=== PATIENT | female | born 1985 | race Caucasian/White ===

== ENCOUNTER 2022-12-30 18:22 | Emergency (ER) | payer MEDICAID, SELFPAY ==
[2022-12-30 18:23] VITALS: BP 163/72; PULSE 82; RESP 18; TEMP 36.4; O2SAT 98; BMI 30.2
[2022-12-30 18:35] VITALS: BP 163/72; PULSE 91; O2SAT 98
[2022-12-30 19:00] VITALS: BP 127/91; PULSE 76; O2SAT 96
--- NOTE | 2022-12-30 19:00 | PC.NURSE ---
Dr. Sparrow at BS for pt eval
[2022-12-30 19:07] LABS: Basophils # 0.1 K/mm3 (0-0.2); Basophils % 0.5 % (0.1-2.0); Eosinophils # 0.2 K/mm3 (0.0-0.4); Eosinophils % 1.8 % (0.1-12.0); Hematocrit 46.5 % (37.0-47.0); Hemoglobin 15.4 g/dL (12.2-16.2); Lymphocytes # 2.5 K/mm3 (0.7-4.5); Lymphocytes % 23.4 % (10-50); Mean Corpuscular HGB Conc 33.2 g/dL (31.8-35.4); Mean Corpuscular Hemoglobin 28.8 pg (27.0-31.2); Mean Corpuscular Volume 86.9 fl (81-99); Mean Platelet Volume 9.3 fl (7.4-10.4); Monocytes # 0.6 K/mm3 (0.1-1.0); Monocytes % 5.9 % (1.7-9.3); Neutrophils # 7.1 K/mm3 (1.8-7.8); Neutrophils % 68.4 % (37.0-80.0); Platelet Count 390 K/mm3 (142-424); Red Blood Count 5.35 M/mm3 (4.20-5.40); Red Cell Distribution Width 13.2 % (11.5-17.5); White Blood Count 10.5 K/mm3 (4.8-10.8)
--- NOTE | 2022-12-30 19:07 | CT_ITS ---
PROCEDURE INFORMATION: Exam: CT Abdomen And Pelvis With Contrast Exam date and time: 12/30/2022 7:51 PM Age: 37 years old Clinical indication: Abdominal pain; Generalized; Additional info: Diffuse abd pain x2 months, post prandial, wt loss TECHNIQUE: Imaging protocol: Computed tomography of the abdomen and pelvis with contrast. Radiation optimization: All CT scans at this facility use at least one of these dose optimization techniques: automated exposure control; mA and/or kV adjustment per patient size (includes targeted exams where dose is matched to clinical indication); or iterative reconstruction. Contrast material: ISOVUE; Contrast volume: 75 ml; Contrast route: IV; REPORTING DATA: Count of CT and Cardiac NM exams in prior 12 months: This patient has received 0 known CTs and 0 known cardiac nuclear medicine studies in the 12 months prior to the current study. COMPARISON: No relevant prior studies available. FINDINGS: Liver: Normal. No mass. Gallbladder and bile ducts: Gallbladder is surgically absent. Pancreas: Normal. No ductal dilation. Spleen: Normal. No splenomegaly. Adrenal glands: Normal. No mass. Kidneys and ureters: Normal. No hydronephrosis. Stomach and bowel: Unremarkable. No obstruction. No mucosal thickening. Appendix: No evidence of appendicitis. Intraperitoneal space: Unremarkable. No free air. No significant fluid collection. Vasculature: Unremarkable. No abdominal aortic aneurysm. Lymph nodes: Unremarkable. No enlarged lymph nodes. Urinary bladder: Unremarkable as visualized. Reproductive: Unremarkable as visualized. Bones/joints: Unremarkable. No acute fracture. Soft tissues: Unremarkable. IMPRESSION: Negative CT abdomen and pelvis
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
[2022-12-30 19:09] LABS: Chloride 105 mmol/L (98-107); Potassium 3.4 mmoL/L (3.5-5.1); Sodium 139 mmol/L (136-145)
[2022-12-30 19:11] LABS: Blood Urea Nitrogen 9 mg/dl (7-17); Creatinine Clearance Estimated 116 mL/min (50-200); Estimated Glomerular Filt Rate 80 ml/min (>60); GFR (African American) 97 ML/MIN (>60)
[2022-12-30 19:12] LABS: Alanine Aminotransferase 40 U/L (12-78); Albumin Level 4.7 g/dl (3.5-5.0); Albumin/Globulin Ratio 1.2 (1.1-1.8); Alkaline Phosphatase 113 U/L (38-126); Anion Gap 14.4 mEq/L (5-15); Aspartate Amino Transferase 47 U/L (14-36); Bilirubin,Total 1.5 mg/dl (0.2-1.3); Calcium 9.5 mg/dl (8.4-10.2); Carbon Dioxide 23 mmol/L (22.0-30.0); Globulin 3.8 g/dL (1.3-3.2); Glucose 107 mg/dl (74-100); Total Protein,Serum 8.5 g/dl (6.3-8.2)
[2022-12-30 19:19] LABS: HCG Qualitative, Serum Negative (Negative)
[2022-12-30 19:21] LABS: Lactic Acid 1.2 mmol/L (0.7-2.1)
--- NOTE | 2022-12-30 19:48 | PC.NURSE ---
Called to CT for new PIVL insertion.
[2022-12-30 21:13] VITALS: BP 105/61; PULSE 100; RESP 20; TEMP 37.1; O2SAT 97
== END 2022-12-30 21:13 | disposition home or self-care (01) ==
PROVIDERS: Emergency Provider Student in an Organized Health Care Education/Training Program
DX: R10.84 Generalized abdominal pain (principal); R11.2 Nausea with vomiting, unspecified; R19.7 Diarrhea, unspecified; R63.4 Abnormal weight loss; F17.290 Nicotine dependence, other tobacco product, uncomplicated; E78.5 Hyperlipidemia, unspecified; E11.9 Type 2 diabetes mellitus without complications
CPT/HCPCS: 74177; 80053; 83605; 84703; 85025; 96361; 96374; 96375; 99284; J0131; J2405; Q9967

== ENCOUNTER 2022-12-31 09:24 | Observation (INO) | payer MEDICAID, SELFPAY ==
[2022-12-31] VITALS (25 sets, daily range): BP systolic 89–130; BP diastolic 46–82; PULSE 59–112; RESP 15–21; TEMP 36.7–36.9; O2SAT 92–100; BMI 29.0; BMI 32.8
--- NOTE | 2022-12-31 09:28 | PC.NURSE ---
Dr. Burleson at BS for pt eval
--- NOTE | 2022-12-31 09:31 | XR_ITS ---
FINAL REPORT CLINICAL HISTORY: epigastric pain, low chest pain COMPARISON: None FINDINGS: A single portable view of the chest was obtained. The heart size and pulmonary vascularity are within normal limits. The mediastinum is within normal limits. No acute pulmonary abnormality is identified. The bony thorax is intact. IMPRESSION: No active cardiopulmonary disease. Reviewed, Interpreted and Dictated by Juancarlos Hughes III, MD Transcribed by Liberty Malin Authenticated and [facility]
--- NOTE | 2022-12-31 09:33 | HMH.EDGENADL ---
Discharge Plan Disposition Patient Disposition: Admitted Chief Complaint: Abdominal Pain Clinical Impressions Clinical Impression: Complaint of melena, Epigastric abdominal pain Discharge ED Provider: Kristofer Burleson General Adult HPI General Chief complaint: Abdominal Pain Stated complaint: ABD pain, dry heaves, seizure this AM Time Seen by Provider: 12/31/22 09:33 Mode of Arrival: Ambulatory Source of Information: Patient Limitations: No Limitations Description of Symptoms (Recalled from ER Triage Doc. by RN): pt to ed c/o epigastric pain, diarrhea, cold sweats x3 days. pt states she was seen in the ed yesterday for same complaints and was told she needed to follow up for a scope. History of Present Illness HPI narrative: Patient is a 37-year-old female with past medical history of previously taking Ozempic, discontinued in August who presents emergency department for evaluation of multiple complaints. Over the last 48 hours patient has had 1 episode of bloody vomiting, otherwise foamy vomiting. Black stools numerous times a day. No dysuria. There is associated epigastric abdominal pain that is moderate to severe in intensity. No other acute complaints at this time. Per chart review yesterday patient was evaluated with hematologic labs are nonactionable, CT imaging was negative and patient had resolution of pain and was referred for outpatient scope which she has yet to schedule. Due to persistent symptoms she presents here for continued evaluation. Related Data Home Medications Medication Instructions Recorded Confirmed atorvastatin 40 mg tablet 40 mg PO DAILY Cholesterol 12/30/22 12/31/22 cholecalciferol (vitamin D3) 125 125 mcg PO DAILY supplement 12/30/22 12/31/22 mcg (5,000 unit) tablet (Vitamin D3) famotidine 40 mg tablet 40 mg PO DAILY Acid Reflux 12/31/22 12/31/22 Allergies Allergy/AdvReac Type Severity Reaction Status Date / Time No Known Allergies Allergy Verified 12/30/22 18:46 [facility] Disclaimer: The information contained in this section may have been updated after the patient was seen, as this information can be updated by other users. Medical History (Updated 12/31/22 @ 13:47 by Kristofer Burleson MD) Diabetes High cholesterol Surgical History (Updated 12/30/22 @ 18:51 by Nicole Soliz RN) History of bladder surgery Hx of cholecystectomy S/P hernia repair Social History (Updated 12/30/22 @ 21:10 by Ozzy Sparrow MD) Smoking Status: Never smoker alcohol intake: never current occupational status: other Travel in the last 8 weeks: None ROS Obtained: Yes Systems reviewed as appropriate & no additional complaints except as documented Physical Exam General General appearance: alert and in distress Head Head exam: atraumatic and normocephalic Eye Eye exam: Present PERRL and EOMI ENT ENT exam: Present mucous membranes moist Neck Neck exam: Present normal inspection Chest Chest inspection: Present normal inspection and symmetric chest wall rise Respiratory Respiratory exam: Present normal lung sounds bilaterally and other (Hyperventilating) Cardiovascular Cardiovascular exam: Present normal rhythm and tachycardia Abdominal Exam Abdominal exam: Present soft and tenderness (Epigastric) Extremities Exam Extremities exam: Present normal inspection Neurological Exam Neurological exam: Present alert Psychiatric Psychiatric exam: Present normal affect Skin Skin exam: Present warm and dry Medical Decision Making Feliciano Inquiry Pt receiving controlled substance: No Vital Signs: 12/31/22 09:28 12/31/22 10:11 12/31/22 10:31 Temperature 98.3 F Temperature Source Oral Pulse Rate 85 85 Pulse Rate [Left Radial] 112 H Respiratory Rate 21 Blood Pressure 104/77 L 106/49 L Blood Pressure [Right Arm] 122/77 Blood Pressure Mean [Right Arm] 92 02 Sat by Pulse Oximetry 98 100 100 Oxygen Delivery Method Room Air Room Air 12/31/22
--- NOTE | 2022-12-31 09:37 | ECG_ITS ---
APPROVED REPORT Exam: Resting ECG HR:66 bpm ECG Measurements Heart Rate 66 AXES NE 136 P 67 QRSd 85 QRS 30 QT 386 T 44 QTc 399 Conclusion SINUS RHYTHM WITH MARKED SINUS ARRHYTHMIA BORDERLINE ECG UNCONFIRMED REPORT Electronically signed by : Scott Ponce MD 12/31/2022 19:37:41
[2022-12-31 09:48] LABS: Coronavirus 19, PCR Not Detected (NotDetected); Influenza A, PCR Not Detected (NotDetected); Influenza B, PCR Not Detected (NotDetected)
--- NOTE | 2022-12-31 09:48 | PC.NURSE ---
XR AT BEDSIDE
--- NOTE | 2022-12-31 09:50 | PC.NURSE ---
Pt ambulatory to bathroom with staff assist. Urine obtained.
--- NOTE | 2022-12-31 09:51 | PC.NURSE ---
RAD at BS for xray
--- NOTE | 2022-12-31 10:05 | PC.NURSE ---
Dr. Burleson at speaking with pt/family about POC
[2022-12-31 10:32] LABS: Basophils % 0.3 % (0.1-2.0); Eosinophils # 0.1 K/mm3 (0.0-0.4); Eosinophils % 1.1 % (0.1-12.0); Hematocrit 40.1 % (37.0-47.0); Lymphocytes # 1.1 K/mm3 (0.7-4.5); Mean Corpuscular HGB Conc 33.2 g/dL (31.8-35.4); Mean Corpuscular Hemoglobin 28.8 pg (27.0-31.2); Mean Corpuscular Volume 86.7 fl (81-99); Mean Platelet Volume 8.6 fl (7.4-10.4); Monocytes # 0.4 K/mm3 (0.1-1.0); Neutrophils # 8.5 K/mm3 (1.8-7.8); Neutrophils % 83.5 % (37.0-80.0); Platelet Count 343 K/mm3 (142-424); Red Blood Count 4.62 M/mm3 (4.20-5.40); Red Cell Distribution Width 13.1 % (11.5-17.5); White Blood Count 10.1 K/mm3 (4.8-10.8)
[2022-12-31 10:40] LABS: Chloride 107 mmol/L (98-107)
[2022-12-31 10:41] LABS: Potassium 3.1 mmoL/L (3.5-5.1); Sodium 139 mmol/L (136-145)
[2022-12-31 10:43] LABS: Alanine Aminotransferase 42 U/L (12-78); Albumin Level 3.8 g/dl (3.5-5.0); Albumin/Globulin Ratio 1.3 (1.1-1.8); Alkaline Phosphatase 91 U/L (38-126); Anion Gap 15.1 mEq/L (5-15); Aspartate Amino Transferase 42 U/L (14-36); Bilirubin,Total 1.3 mg/dl (0.2-1.3); Blood Urea Nitrogen 9 mg/dl (7-17); Carbon Dioxide 20 mmol/L (22.0-30.0); Creatinine Clearance Estimated 122 mL/min (50-200); Estimated Glomerular Filt Rate 80 ml/min (>60); GFR (African American) 97 ML/MIN (>60); Globulin 2.9 g/dL (1.3-3.2); Hemoglobin 13.3 g/dL (12.2-16.2); Lipase 71 U/L (23-300); Total Protein,Serum 6.7 g/dl (6.3-8.2)
[2022-12-31 10:44] LABS: Calcium 8.8 mg/dl (8.4-10.2); Glucose 123 mg/dl (74-100)
[2022-12-31 10:57] LABS: HCG Qualitative, Serum Negative (Negative)
[2022-12-31 11:22] LABS: Troponin I < 0.01 ng/ml (0.00-0.034)
[2022-12-31 11:32] LABS: Microscopic, Urine URINE MICROSCOPIC (MICROSCOPIC)
--- NOTE | 2022-12-31 11:38 | PC.NURSE ---
Rounded on pt. She advised her pain had been completely gone but is starting to return at this time. Dr. Burleson made aware.
[2022-12-31 11:51] LABS: Appearance,Urine CLEAR (Clear); Blood, Urine 2+ (Negative); Color,Urine DARK YELLOW (Yellow); Glucose,Urine (UA) Negative (Negative); Ketones,Urine 1+ (Negative); Leukocyte Esterase,Urine TRACE (Negative); Nitrate,Urine Negative (Negative); Protein,Urine 1+ (Negative); Specific Gravity, Urine >= 1.030 (1.005-1.030); Urobilinogen,Urine 0.2 EU/dl (0.2)
[2022-12-31 12:26] LABS: Bacteria,Urine 2+ /lpf; Bilirubin,Urine Negative (Negative)
--- NOTE | 2022-12-31 12:49 | PC.NURSE ---
Rounded on pt. Advised she had no nausea, but did have pain.
--- NOTE | 2022-12-31 13:05 | PC.NURSE ---
asked Dr. Stanton to return call to Dr. Burleson for consult and possible admission/EGD
--- NOTE | 2022-12-31 13:07 | PC.NURSE ---
Dr. Burleson s/w Dr. Dodge for possible admission, hospitalist would like for Dr. Stanton to be consulted first.
--- NOTE | 2022-12-31 13:08 | PC.NURSE ---
Dr. Burleson s/w Dr. Stanton, agree to admit
--- NOTE | 2022-12-31 13:11 | PC.NURSE ---
DR REYES AT BEDSIDE TO UPDATE PT
--- NOTE | 2022-12-31 13:11 | PC.NURSE ---
Dr. Burleson advised to have pt stay NPO
--- NOTE | 2022-12-31 13:14 | EXP.SURG.CON ---
History of Present Illness *Admission Date: 12/31/22 *Reason for visit:: Abdominal pain, possible ulcer *History of present illness: Asked to see this patient from the ER physician due to symptoms of abdominal pain and melena. Patient is a 37-year-old female from [place]. She presented to the emergency department yesterday on 12/30/2022 with several month history of nausea, vomiting, diarrhea, and epigastric pain. She contributes and correlates the onset of her symptoms to when she began Ozempic in June of this year. She actually had been scheduled to see a sanitation manager at [place] but this was not until February 12. Her symptoms became more significant over several days prior to presenting to the emergency department. She had previously been on Ozempic and had discontinued this medication in August due to plans for bladder surgery. She did undergo bladder sling in August. She describes ongoing symptoms of postprandial abdominal pain mostly in the epigastrium. Recently this is quite severe and occurs with any oral intake. When she was seen in the emergency department on 12/30/2022 she was able to be managed as an outpatient. There was consideration being given for possible peptic ulcer and patient was advised to follow-up with general surgery at this facility to have upper endoscopy performed. She has been on H2 delmar and PPI. Blood work has been relatively unremarkable with slightly above normal AST. She returned to the emergency department this morning due to ongoing abdominal pain and dry heaves. She has an apparent seizure disorder and states that she had a seizure. She has had some diarrhea and apparent diaphoresis. Patient was given intravenous antiemetics and GI cocktail. Symptoms persisted and it was felt that she may require inpatient admission to the hospitalist service and possible surgical endoscopy to evaluate for ulcer disease. Her BUN and creatinine are normal. AST still slightly above normal at 36. Hemoglobin 15.4 yesterday and 13.3 today. Denies any prior known history of ulcer disease. No previous history of pancreatitis. No documented history of hepatitis. [facility] Disclaimer: The information contained in this section may have been updated after the patient was seen, as this information can be updated by other users. Medical History (Updated 12/30/22 @ 19:10 by Ozzy Sparrow MD) Diabetes High cholesterol Surgical History (Updated 12/30/22 @ 18:51 by Nicole Soliz RN) History of bladder surgery Hx of cholecystectomy S/P hernia repair Social History (Updated 12/30/22 @ 21:10 by Ozzy Sparrow MD) Smoking Status: Never smoker alcohol intake: never current occupational status: other Travel in the last 8 weeks: None Review of Systems Review of Systems Review of systems:: pertinent systems reviewed and negative unless documented below *Gastrointestinal Gastrointestinal: Reports abdominal pain, Reports diarrhea and Reports melena *Neurologic Neurologic: Reports convulsions Meds Home Medications and Allergies Home Medications Medication Instructions Recorded Confirmed Type atorvastatin 40 mg tablet 40 mg PO DAILY Cholesterol 12/30/22 12/31/22 History cholecalciferol (vitamin D3) 125 125 mcg PO DAILY supplement 12/30/22 12/31/22 History mcg (5,000 unit) tablet (Vitamin D3) famotidine 40 mg tablet 40 mg PO DAILY Acid Reflux 12/31/22 12/31/22 History New Prescriptions to Start Prescriptions: Allergies Allergy/AdvReac Type Severity Reaction Status Date / Time No Known Allergies Allergy Verified 12/30/22 18:46 Exam (Inpt) Vital signs and Labs for Last 24 Hours: Temp Pulse Resp BP Pulse Ox O2 Del Method 98.3 F 82 21 94/46 L 95 Room Air 12/31/22 09:28 12/31/22 12:30 12/31/22 09:28 12/31/22 12:30 12/31/22 12:30 12/31/22 11:37 Laboratory Results - last 24 hr 12/31/22 09:40: SARS-CoV-2 (PCR) Not detected, Influenza A Untype (P
--- NOTE | 2022-12-31 13:18 | PC.NURSE ---
CARE MANAGEMENT NOTIFIED OF ADMISSION
--- NOTE | 2022-12-31 13:39 | HMH.PHAINT1 ---
Pharmacy Intervention Comments: MEDICATION RECONCILIATION COMPLETED ON PATIENT USING EXTERNAL FILL HISTORY FROM PHARMACY AND DISCHARGE SUMMARY FROM ED VISIT YESTERDAY. -AVERY MURPHYD
--- NOTE | 2022-12-31 14:05 | P.PNANES_ITS ---
[facility] Disclaimer: The information contained in this section may have been updated after the patient was seen, as this information can be updated by other users. Medical History (Updated 12/31/22 @ 13:47 by Kristofer Burleson MD) Diabetes High cholesterol Surgical History (Updated 12/30/22 @ 18:51 by Nicole Soliz RN) History of bladder surgery Hx of cholecystectomy S/P hernia repair Social History (Updated 12/30/22 @ 21:10 by Ozzy Sparrow MD) Smoking Status: Never smoker alcohol intake: never substance use type: former substance user current occupational status: other Travel in the last 8 weeks: None [facility] Anesthesia Checklist Patient Identification Patient Identification: Arm Band Structural Data Admitted From: Home Planned Operative Procedure/s: EGD Consent for Planned Operative Procedure(s) Verified: Yes Verified Documents: Surgical Consent and History and Physical NPO Status Verified Time NPO: 00:00 Additional verifications Anesthesia Reactions: No Airway Assessment Mallampati Score:: Class II C-Spine Mobility Assessed: Yes TMJ Mobility Assessed: Yes Dentition: Good Dentition Neurological Assessment Level of Consciousness: Awake and Alert Anesthesia Plan Anesthesia Risk discussed: Yes Anesthesia Plan: Verified ASA Class: II Anesthesia Type: MAC
--- NOTE | 2022-12-31 14:20 | HMH.SCOPE ---
Procedure: Date: 12/31/22 Patient Date of :: 1985 Procedure Performed:: Esophagogastroduodenoscopy with biopsy Indications:: Patient is a 37-year-old female from [place]. She presented to the emergency department yesterday on 12/30/2022 with several month history of nausea, vomiting, diarrhea, and epigastric pain. She contributes and correlates the onset of her symptoms to when she began Ozempic in June of this year. She actually had been scheduled to see a property claims adjuster at [place] but this was not until February 12. Her symptoms became more significant over several days prior to presenting to the emergency department. She had previously been on Ozempic and had discontinued this medication in August due to plans for bladder surgery. She did undergo bladder sling in August. She describes ongoing symptoms of postprandial abdominal pain mostly in the epigastrium. Recently this is quite severe and occurs with any oral intake. When she was seen in the emergency department on 12/30/2022 she was able to be managed as an outpatient. There was consideration being given for possible peptic ulcer and patient was advised to follow-up with general surgery at this facility to have upper endoscopy performed. She has been on H2 delmar and PPI. Blood work has been relatively unremarkable with slightly above normal AST. She returned to the emergency department this morning due to ongoing abdominal pain and dry heaves. She has an apparent seizure disorder and states that she had a seizure. She has had some diarrhea and apparent diaphoresis. Patient was given intravenous antiemetics and GI cocktail. Symptoms persisted and it was felt that she may require inpatient admission to the hospitalist service and possible surgical endoscopy to evaluate for ulcer disease. Her BUN and creatinine are normal. AST still slightly above normal at 36. Hemoglobin 15.4 yesterday and 13.3 today. Denies any prior known history of ulcer disease. No previous history of pancreatitis. No documented history of hepatitis. Performing Provider:: Juancarlos Stanton MD Referring Provider:: . Sedation:: MAC sedation Procedure:: Patient history was obtained and appropriate physical examination was performed. Patient's medications and allergies were reviewed. Informed consent was obtained after explaining the benefits, alternatives, and risks of the procedure including, but not limited to, bleeding, perforation, missed lesions, and adverse reaction to anesthesia medications. Patient was transported to endoscopy procedure room. Patient was connected to monitoring devices. Throughout the procedure the patient's blood pressure, pulse, and oxygen saturations were monitored continuously. Patient identification and planned procedure were verified by the staff. Patient was positioned in lateral decubitus position. Olympus endoscope was inserted via the oropharynx. Esophagus was cannulated. Overall esophagus appeared unremarkable. Gastroesophageal junction was encountered at approximately 38 cm from the incisors and appeared unremarkable. Stomach was cannulated and insufflated. Retroflexion was performed which revealed no evidence of any appreciable hiatal hernia. There is some diffuse mild nonerosive gastropathy/gastritis with findings suggestive of bile reflux. There was evidence of mild to moderate nonerosive focal prepyloric gastritis. Biopsy was obtained. Pylorus was traversed. Endoscope was advanced a generous distance into the small bowel which appeared unremarkable. Overall duodenum appeared normal. Endoscope was withdrawn into the stomach and stomach was desufflated as the endoscope was withdrawn. . Findings:: Gastroesophageal junction at 38 cm Mild diffuse nonerosive gastropathy/gastritis Focal mild to moderate nonerosive prepyloric gastritis Findings suggestive of bile reflux Recommendations:: Expectant management. No evidence of acute significant
[2022-12-31 14:26] LABS: Troponin I < 0.01 ng/ml (0.00-0.034)
--- NOTE | 2022-12-31 14:36 | PC.NURSE ---
arrived to floor by stretcher from surgery
--- NOTE | 2022-12-31 15:41 | EXP.HP ---
History of Present Illness *Admission Date: 12/31/22 *Reason for visit:: Diarrhea, melenic stool, abdominal pain. *History of present illness: Ms. Pandya is a 37-year-old female with persistent abdominal pain, worsening nausea and vomiting, black stools over the past couple days. States that she has had difficulty with upset stomach, vomiting, abdominal pain ever since starting Ozempic in May of this year. She stopped it in July in preparation for her procedure in September. She has had trouble with her stomach ever since starting the medication. Describes postprandial abdominal pain, mainly in the epigastric region. Will have upset stomach, pain, vomiting every morning. Came to the ER for persistent symptoms. Labs show decrease in hemoglobin by 2 points but still in the normal range over the past 24 hours. After yesterday's visit, there was consideration being given for possible peptic ulcer and patient was advised to follow-up with general surgery at this facility to have upper endoscopy performed. She has been on H2 delmar and PPI. Blood work has been relatively unremarkable with slightly above normal AST. She returned to the emergency department this morning due to ongoing abdominal pain and dry heaves. She has had some diarrhea and apparent diaphoresis. Patient was given intravenous antiemetics and GI cocktail. Her BUN and creatinine are normal. AST still slightly above normal at 36. Hemoglobin 15.4 yesterday and 13.3 today. Denies any prior known history of ulcer disease. No previous history of pancreatitis. No documented history of hepatitis. Lipase normal. ER consulted medicine for admission. Surgery consulted for EGD Patient feeling better after arrival to the floor and post EGD. Received good relief from GI cocktail. Tolerating p.o. liquids at this time. Stable on room air. [facility] Disclaimer: The information contained in this section may have been updated after the patient was seen, as this information can be updated by other users. Medical History (Updated 12/31/22 @ 18:35 by Jesse Dodge MD) Diabetes High cholesterol Surgical History History of bladder surgery Hx of cholecystectomy S/P hernia repair Family History No significant family history Social History Smoking Status: Never smoker alcohol intake: never substance use type: former substance user current occupational status: other Travel in the last 8 weeks: None Review of Systems Review of Systems Review of systems (narrative): 14 point review of systems performed, pertinent positives and negatives as per HPI *Neurologic Neurologic: Reports convulsions Meds Home Medications and Allergies Home Medications Medication Instructions Recorded Confirmed Type atorvastatin 40 mg tablet 40 mg PO DAILY Cholesterol 12/30/22 12/31/22 History cholecalciferol (vitamin D3) 125 125 mcg PO DAILY supplement 12/30/22 12/31/22 History mcg (5,000 unit) tablet (Vitamin D3) famotidine 40 mg tablet 40 mg PO DAILY Acid Reflux 12/31/22 12/31/22 History New Prescriptions to Start Prescriptions: Allergies Allergy/AdvReac Type Severity Reaction Status Date / Time No Known Allergies Allergy Verified 12/30/22 18:46 Exam Data for Last 24 hours Vital signs and Labs for Last 24 Hours: Temp Pulse Resp BP Pulse Ox O2 Del Method 98.1 F 86 16 94/59 L 96 Room Air 12/31/22 14:20 12/31/22 14:40 12/31/22 14:40 12/31/22 14:40 12/31/22 14:40 12/31/22 14:40 Laboratory Results - last 24 hr 12/31/22 09:40: SARS-CoV-2 (PCR) Not detected, Influenza A Untype (PCR) Not detected, Influenza Type B (PCR) Not detected 12/31/22 09:48: Urine Color Dark yellow, Urine Appearance Clear, Urine pH 6.0, Ur Specific [place] >= 1.030, Urine Protein 1+, Urine Glucose (UA) Negative, Urine Ketone
[2022-12-31 16:53] LABS: Troponin I < 0.01 ng/ml (0.00-0.034)
[2022-12-31 20:39] LABS: POC Glucose,Bedside 94 (70-110)
[2022-12-31 20:40] LABS: Hematocrit 39.3 % (37.0-47.0); Hemoglobin 12.7 g/dL (12.2-16.2)
[2022-12-31 22:03] LABS: Hemoglobin A1C 5.2 % (4.0-6.0)
[2023-01-01 04:00] VITALS: BP 92/56; PULSE 63; RESP 17; TEMP 36.7; O2SAT 94; BMI 32.6
--- NOTE | 2023-01-01 05:20 | PC.NURSE ---
Patient has been able to sleep a couple hours tonight. Did have pain and nausea throughout the shift see MAR. said pain was controlled well with the changes that were made. Stated patient was nervous to take any narcotics as she is a recovering addict. Stool sample has been sent down to lab. No other issues noted.
[2023-01-01 05:33] LABS: POC Glucose,Bedside 100 (70-110)
[2023-01-01 06:34] LABS: Basophils % 0.6 % (0.1-2.0); Eosinophils # 0.1 K/mm3 (0.0-0.4); Eosinophils % 1.6 % (0.1-12.0); Hematocrit 39.1 % (37.0-47.0); Hemoglobin 12.5 g/dL (12.2-16.2); Lymphocytes # 1.9 K/mm3 (0.7-4.5); Lymphocytes % 32.1 % (10-50); Mean Corpuscular HGB Conc 31.9 g/dL (31.8-35.4); Mean Corpuscular Hemoglobin 28.4 pg (27.0-31.2); Mean Platelet Volume 8.8 fl (7.4-10.4); Monocytes # 0.4 K/mm3 (0.1-1.0); Monocytes % 7.2 % (1.7-9.3); Neutrophils # 3.4 K/mm3 (1.8-7.8); Neutrophils % 58.5 % (37.0-80.0); Platelet Count 286 K/mm3 (142-424); Red Blood Count 4.39 M/mm3 (4.20-5.40); Red Cell Distribution Width 13.4 % (11.5-17.5); White Blood Count 5.8 K/mm3 (4.8-10.8)
[2023-01-01 06:44] LABS: Chloride 107 mmol/L (98-107)
[2023-01-01 06:45] LABS: Potassium 3.1 mmoL/L (3.5-5.1); Sodium 139 mmol/L (136-145)
[2023-01-01 06:47] LABS: Alanine Aminotransferase 25 U/L (12-78); Aspartate Amino Transferase 28 U/L (14-36); Blood Urea Nitrogen 10 mg/dl (7-17); Creatinine Clearance Estimated 129 mL/min (50-200); Estimated Glomerular Filt Rate 80 ml/min (>60); GFR (African American) 97 ML/MIN (>60)
[2023-01-01 06:48] LABS: Albumin Level 3.4 g/dl (3.5-5.0); Albumin/Globulin Ratio 1.4 (1.1-1.8); Alkaline Phosphatase 80 U/L (38-126); Anion Gap 8.1 mEq/L (5-15); Bilirubin,Total 0.5 mg/dl (0.2-1.3); Calcium 8.2 mg/dl (8.4-10.2); Carbon Dioxide 27 mmol/L (22.0-30.0); Globulin 2.5 g/dL (1.3-3.2); Glucose 101 mg/dl (74-100); Magnesium 1.9 mg/dl (1.6-2.3); Total Protein,Serum 5.9 g/dl (6.3-8.2)
[2023-01-01 07:52] VITALS: BP 113/57; PULSE 79; RESP 18; TEMP 36.8; O2SAT 98
--- NOTE | 2023-01-01 10:30 | EXP.DC.SUM ---
General Admission date:: 12/31/22 Discharge date: 01/01/23 HPI HPI HPI: Ms. Pandya is a 37-year-old female with persistent abdominal pain, worsening nausea and vomiting, black stools over the past couple days. States that she has had difficulty with upset stomach, vomiting, abdominal pain ever since starting Ozempic in May of this year. She stopped it in July in preparation for her procedure in September. She has had trouble with her stomach ever since starting the medication. Describes postprandial abdominal pain, mainly in the epigastric region. Will have upset stomach, pain, vomiting every morning. Came to the ER for persistent symptoms. Labs show decrease in hemoglobin by 2 points but still in the normal range over the past 24 hours. After yesterday's visit, there was consideration being given for possible peptic ulcer and patient was advised to follow-up with general surgery at this facility to have upper endoscopy performed. She has been on H2 delmar and PPI. Blood work has been relatively unremarkable with slightly above normal AST. She returned to the emergency department this morning due to ongoing abdominal pain and dry heaves. She has had some diarrhea and apparent diaphoresis. Patient was given intravenous antiemetics and GI cocktail. Her BUN and creatinine are normal. AST still slightly above normal at 36. Hemoglobin 15.4 yesterday and 13.3 today. Denies any prior known history of ulcer disease. No previous history of pancreatitis. No documented history of hepatitis. Lipase normal. ER consulted medicine for admission. Surgery consulted for EGD Patient feeling better after arrival to the floor and post EGD. Received good relief from GI cocktail. Tolerating p.o. liquids at this time. Stable on room air. Hospital Course Hospital Course Hospital Course: The patient was admitted to the telemetry floor after her EGD. Her EGD identified gastritis with no evidence of acute bleeding. Her labs were trended and her hemoglobin remained stable. She identified improvement on her PPI therapy and inquired about discharge home. We have recommended that she follow-up with a administrator social welfare. I spent 35 minutes in [id number] time with the patient and nursing staff concerning the discharge process. We discussed the admitting diagnoses and hospital course. We discussed identified improvement and the patient's desire to be discharged. We reviewed inpatient studies and imaging. The patient voiced understanding on the importance of follow-up with her primary care provider and GI specialist(s). The patient plans to be compliant with the medication regimen prescribed and follow-up appointments. She understands that she can return to the emergency department with any sudden changes or concerns. Exam Data for Last 24 hours Vital signs and Labs for Last 24 Hours: Temp Pulse Resp BP Pulse Ox O2 Del Method 98.3 F 79 18 113/57 L 98 Room Air 01/01/23 07:52 01/01/23 07:52 01/01/23 07:52 01/01/23 07:52 01/01/23 07:52 01/01/23 08:57 Laboratory Results - last 24 hr 12/31/22 09:40: SARS-CoV-2 (PCR) Not detected, Influenza A Untype (PCR) Not detected, Influenza Type B (PCR) Not detected 12/31/22 09:48: Urine Color Dark yellow, Urine Appearance Clear, Urine pH 6.0, Ur Specific [place] >= 1.030, Urine Protein 1+, Urine Glucose (UA) Negative, Urine Ketones 1+, Urine Blood 2+, Urine Nitrate Negative, Urine Bilirubin Negative, Urine Urobilinogen 0.2, Ur Leukocyte Esterase Trace, Urine RBC 5-10, Urine WBC 10-20, Ur Squamous Epith Cells 3-5, Urine Bacteria 2+ 12/31/22 10:22: WBC 10.1, RBC 4.62, Hgb 13.3 D, Hct 40.1, MCV 86.7, MCH 28.8, MCHC 33.2, RDW 13.1, Plt Count 343, MPV 8.6, Neut % (Auto) 83.5 H, Lymph % (Auto) 11.0, [place] % (Auto) 4.0, Eos % (Auto) 1.1, Baso % (Auto) 0.3, Neut # (Auto) 8.5 H, Lymph # (Auto) 1.1, [place] # (Auto) 0.4, Eos # (Auto) 0.1, Baso # (Auto) 0.0, Sodium 139, Potassium 3.1 L, Chloride 107, Carbon Dioxide 20 L, Anion
--- NOTE | 2023-01-01 10:53 | HMH.PHAINT1 ---
Pharmacy Intervention Comments: DISCHARGE MEDICATION COUNSELING PROVIDED. DISCUSSED THE FOLLOWING CHANGES: -STOP FAMOTIDINE -START PROTONIX (FOR REFLUX/STOMACH ACID, TAKE DAILY 30 MINUTES BEFORE BREAKFAST, HEADACHE POSSIBLE) -START SUCRALFATE (FOR GI BLEED, BEFORE MEALS AND AT BEDTIME, MAY CAUSE CONSTIPATION) PATIENT VERBALIZED NO QUESTIONS AT THIS TIME.
[2023-01-02 03:13] LABS: Adenovirus F 40/41, stool Not Detected (NotDetected); Astrovirus Not Detected (NotDetected); Campylobacter Not Detected (NotDetected); Clostridium Difficile A/B, PCR Not Detected (NotDetected); Cryptosporidium Not Detected (NotDetected); Cyclospora Cayetanesis Not Detected (NotDetected); Entamoeba histolytica Not Detected (NotDetected); Enteroaggregative E coli Not Detected (NotDetected); Enteropathogenic E coli Not Detected (NotDetected); Enterotoxigenic E coli Not Detected (NotDetected); Giardia lamblia Not Detected (NotDetected); Norovirus Not Detected (NotDetected); Plesimonas Shigalloides, PCR Not Detected (NotDetected); Rotavirus A Not Detected (NotDetected); Salmonella, PCR Not Detected (NotDetected); Sapovirus Not Detected (NotDetected); Shiga-like toxin E coli Not Detected (NotDetected); Shigella Enterovasive E coli Not Detected (NotDetected); Vibrio Cholerae Not Detected (NotDetected); Vibrio, PCR Not Detected (NotDetected); Yersinia Entercolitica, PCR Not Detected (NotDetected)
[2023-01-02 08:49] LABS: HBsAg Screen Negative (Negative); HCV Ab Non Reactive (Non Reactive); Hep A Ab, IGM Negative (Negative); Hep B Core Ab, IgM Negative (Negative)
--- NOTE | 2023-01-03 13:30 | CARE MANAGER ---
Contacted patient related to hospital discharge. She states she is not felling well and hasn't felt any better. She tried to see her PCP but they couldn't get her in. She is unable to eat or drink and will likely come back to the ER this afternoon to be checked if she doesn't get any better.
== END 2023-01-01 11:44 | disposition home or self-care (01) ==
LOC: ER 10:16 → 2ND 13:47
PROVIDERS: Surgery; Admitting Provider Internal Medicine Adolescent Medicine; Emergency Provider Emergency Medicine; Visit Provider Internal Medicine Adolescent Medicine
PROC: 0DJ08ZZ Inspection of Upper Intestinal Tract, Via Natural or Artificial Opening Endoscopic (ICD-10-PCS; CPT 43235; principal; 2022-12-31 14:00)
DX: R10.84 Generalized abdominal pain (principal); K29.60 Other gastritis without bleeding; E11.9 Type 2 diabetes mellitus without complications; K92.1 Melena; Z79.899 Other long term (current) drug therapy
CPT/HCPCS: 43239; 36415; 71045; 80053; 80074; 81001; 82962; 83036; 83690; 83735; 84484; 84703; 85014; 85018; 85025; 87086; 87507; 87636; 88305; 93005; 99285; G0378; J2405

== ENCOUNTER 2024-04-20 08:08 | Emergency (ER) | payer MEDICAID, SELFPAY ==
[2024-04-20] VITALS (8 sets, daily range): BP systolic 116–138; BP diastolic 69–97; PULSE 67–88; RESP 12–25; TEMP 36.7; O2SAT 96–100; BMI 31.4
--- NOTE | 2024-04-20 08:34 | ED_ITS ---
Discharge Plan Disposition Patient Disposition: Home, Self-Care Condition: Good Prescriptions Prescriptions: New ondansetron 4 mg tablet,disintegrating 4 mg PO Q8H PRN (Reason: nausea and vomiting) 4 Days Qty: 12 0RF dicyclomine 20 mg tablet 20 mg PO QID PRN (Reason: abdominal pain) Qty: 20 0RF famotidine [Pepcid] 20 mg tablet 20 mg PO DAILY Qty: 20 0RF No Action sucralfate 1 gram Tablet 1 g PO ACHS Qty: 40 0RF pantoprazole [Protonix] 40 mg tablet,delayed release (DR/EC) 40 mg PO DAILY Qty: 30 0RF atorvastatin 40 mg tablet 40 mg PO DAILY cholecalciferol (vitamin D3) [Vitamin D3] 125 mcg (5,000 unit) Tablet 125 mcg PO DAILY Referrals Follow up/Referrals: Gloria Higginbotham APRN [Primary Care Provider] - See instructions Activity Restrictions/Add. Instructions Additional Instructions/Restrictions: You were evaluated in the emergency department today. Please fruit or nut picker your prescriptions at the pharmacy and take as needed for symptoms. Follow-up closely with your primary care provider for reassessment. Return to the emergency department for new or worsening symptoms. Clinical Impressions Clinical Impression: Nausea & vomiting, Headache Stand Alone Forms Stand Alone Forms: Work/School Release Instructions Patient Instructions: DI for Diarrhea and Traveler's Diarrhea -- Adult, DI for Nausea -- Adult, DI for Headache Print Language Print Language: Moldovan Discharge ED Provider: Evelyn Kirkland General Adult HPI General Chief complaint: Nausea/Vomiting/Diarrhea Stated complaint: vomiting, weakness, headache, dehydration Time Seen by Provider: 04/20/24 08:29 Mode of Arrival: Ambulatory Source of Information: Patient Limitations: No Limitations Description of Symptoms (Recalled from ER Triage Doc. by RN): pt presents to ED with c/o nausea, vomitting, headache. pt reports last week she was diagnosed with flu a. pt reports sick contacts in her house. pt reports lower abdominal pain as well. History of Present Illness HPI narrative: This patient is a 39-year-old female with a history of obesity, hyperlipidemia, GERD, prior cholecystectomy, prior hernia repair, and gastroparesis related to prior GLP-1 use presenting to the emergency department for evaluation with concern for nausea, vomiting, headache, and general weakness. Patient states she is concerned she is dehydrated. She notes she had headache, nausea, vomiting, and other constitutional symptoms about 8 days ago and was diagnosed with the flu 6 days ago. She states that she took a course of Tamiflu, which she has since completed, and she initially was feeling better up until yesterday. Yesterday, she started having some lower abdominal pain, mostly in the right lower quadrant, nausea, vomiting, headache, and bodyaches. She states she is not been able to keep anything down since then and is concerned she is dehydrated. No blood in her emesis, stools, dark tarry stools, or other concerns noted. Related Data Home Medications ?Medication ?Instructions ?Recorded ?Confirmed atorvastatin 40 mg tablet 40 mg PO DAILY Cholesterol 12/30/22 12/31/22 cholecalciferol (vitamin D3) 125 125 mcg PO DAILY supplement 12/30/22 12/31/22 mcg (5,000 unit) tablet (Vitamin D3) Previous Rx's ?Medication ?Instructions ?Recorded pantoprazole 40 mg tablet,delayed 40 mg PO DAILY #30 tabs 01/01/23 release (Protonix) sucralfate 1 gram tablet 1 g PO ACHS #40 tabs 01/01/23 dicyclomine 20 mg tablet 20 mg PO QID PRN abdominal pain 04/20/24 #20 tabs famotidine 20 mg tablet (Pepcid) 20 mg PO DAILY #20 tabs 04/20/24 ondansetron 4 mg disintegrating 4 mg PO Q8H PRN nausea and 04/20/24 tablet vomiting 4 days #12 tabs Allergies Allergy/AdvReac Type Severity Reaction Status Date / Time No Known Allergies Allergy Verified 12/30/22 18:46 [facility] Disclaimer: The information contained in this section may have been updated after the patient was seen, as this information can be updated by other users. Medical History (Updated 04/20/24 @ 11:31 by Evelyn Kirkland DO) High cholesterol Diabetes Surgical History (Updated 04/20/24 @ 09:51 by Wendi Ortiz RN) Hx of tubal ligation History of bladder surgery Hx of cholecystectomy S/P hernia repair Family History Other No significant family history Social History Smoking Status: Current every day smoker tobacco type: e-cigarettes alcohol intake: never substance use type: former substance user current occupational status: other Travel in the last 8 weeks: None Have you lived/traveled outside [place] in past 30 days?: No Contact w/someone who lives/traveled outside [place] past 30 days?: No Exposure to someone with infectious disease in past 14 days?: No Do you have a fever (greater than 100.4 F or 38 C)?: Yes Have you tested positive for COVID-19: No Exposed to someone with COVID-19 in past 14 days?: No Do you have a sore throat?: No Do you have a cough?: Yes Do you have any weakness?: Yes Do you have any diarrhea?: Yes Are you experiencing any unusual bleeding?: No Do you have any muscle aches/pain?: Yes Do you have any abdominal pain?: No Are you experiencing loss of taste or smell?: No Other Medical History Have you received the Flu Vaccine for this season: No Have you received the Pneumonia Vaccine: No ROS Obtained: Yes All systems reviewed & no additional complaints except as documented Physical Exam General General appearance: alert and in no apparent distress Head Head exam: atraumatic and normocephalic Eye Eye exam: Present normal appearance, PERRL and EOMI ENT ENT exam: Present normal exam, normal oropharynx, mucous membranes moist and normal external ear exam Neck Neck exam: Present normal inspection, full ROM and trachea midline; Absent tenderness Chest Chest inspection: Present normal inspection and symmetric chest wall rise; Absent tenderness Respiratory Respiratory exam: Present normal lung sounds bilaterally; Absent respiratory distress, wheezes, stridor or accessory muscle use Cardiovascular Cardiovascular exam: Present regular rate and normal rhythm Abdominal Exam Abdominal exam: Present soft and tenderness (Right lower quadrant); Absent distention, guarding, rebound or rigidity Extremities Exam Extremities exam: Present normal inspection, full ROM and normal capillary refill; Absent tenderness or edema Back Exam Back exam: Present normal inspection and full ROM; Absent tenderness Neurological Exam Neurological exam: Present alert, oriented X3, CN II-XII intact and normal gait; Absent motor sensory deficit Psychiatric Psychiatric exam: Present normal affect and normal mood Skin Skin exam: Present warm and dry Medical Decision Making Medical Records Medical records reviewed: Yes I reviewed the patient's medical records. Screening: Per USPSTF and CDC recommendations, given the prevalence of disease in our region, it is our hospital?s policy to screen for HIV and viral Hepatitis for all patients aged 18 and over and those with ongoing risk factors. [place] Inquiry Pt receiving controlled substance: No Vital Signs: 04/20/24 08:10 04/20/24 08:30 04/20/24 08:45 Temperature 98.1 F Temperature Source Oral Pulse Rate 80 73 Pulse Rate [Left Radial] 69 Respiratory Rate 19 13 18 Blood Pressure 134/87 Blood Pressure [Right Arm] 138/97 H Blood Pressure Mean 104 Blood Pressure Mean [Right Arm] 110 02 Sat by Pulse Oximetry 97 97 96 Oxygen Delivery Method Room Air 04/20/24 09:00 04/20/24 09:30 04/20/24 10:00 Temperature Temperature Source Pulse Rate 78 67 88 Pulse Rate [Left Radial] Respiratory Rate 13 21 25 H Blood Pressure 116/70 124/81 130/69 Blood Pressure [Right Arm] Blood Pressure Mean 100 Blood Pressure Mean [Right Arm] 02 Sat by Pulse Oximetry 98 98 98 Oxygen Delivery Method Room Air 04/20/24 10:30 04/20/24 11:51 Temperature 98.0 F Temperature Source Pulse Rate 72 76 Pulse Rate [Left Radial] Respiratory Rate 18 12 Blood Pressure 136/83 120/79 Blood Pressure [Right Arm] Blood Pressure Mean Blood Pressure Mean [Right Arm] 02 Sat by Pulse Oximetry 97 Oxygen Delivery Method Room Air Room Air Lab Data Lab results reviewed: Yes I reviewed the patient's lab results. Lab Results 04/20/24 08:20: WBC 7.4, RBC 5.14, Hgb 14.2, Hct 41.9, MCV 81.5, MCH 27.6, MCHC 33.9, RDW 12.6, Plt Count 306, MPV 11.4 H, Neut % (Auto) 68.8, Lymph % (Auto) 22.7, [place] % (Auto) 6.9, Eos % (Auto) 0.9, Baso % (Auto) 0.4, Neut # (Auto) 5.1, Lymph # (Auto) 1.7, [place] # (Auto) 0.5, Eos # (Auto) 0.1, Baso # (Auto) 0.0, Sodium 141, Potassium 3.3 L, Chloride 103, Carbon Dioxide 27, Anion Gap 14.3, BUN 11, Creatinine 0.80, Estimated Creat Clear 121, Estimated GFR 79, Est GFR ( Amer) 96, Glucose 112 H, Calcium 9.7, Total Bilirubin 1.3, AST 48 H, ALT 59, Alkaline Phosphatase 96, Total Protein 8.1 D, Albumin 5.0, Globulin 3.1, Albumin/Globulin Ratio 1.6, Lipase 121, Serum HCG, Qual Negative, HCV Ab ANDRE w/Rflx PCR Qn Negative, HIV Ag/Ab Combo Qual Negative 04/20/24 08:39: SARS-CoV-2 (PCR) Not detected, Influenza A Untype (PCR) Not detected, Influenza Type B (PCR) Not detected 04/20/24 10:32: Urine Color Yellow, Urine Appearance Clear, Urine pH 6.0, Ur Specific [place] 1.010, Urine Protein Negative, Urine Glucose (UA) Negative, Urine Ketones 2+, Urine Blood Negative, Urine Nitrate Negative, Urine Bilirubin Negative, Urine Urobilinogen 0.2, Ur Leukocyte Esterase Negative, Urine RBC None, Urine WBC None, Ur Squamous Epith Cells 3-5, Urine Bacteria Trace 04/20/24 08:20 04/20/24 08:20 Orders (Tests/Meds): ED MEDICATIONS Discontinued Medications Generic Name Dose Route Start Last Admin Trade Name Freq PRN Reason Stop Dose Admin Acetaminophen 1,000 mg 04/20/24 08:33 04/20/24 08:53 Acetaminophen 1,000mg/100ml Vial IV 04/20/24 08:34 1,000 mg ONCE ONE Administration Dicyclomine HCl 20 mg 04/20/24 11:34 04/20/24 11:41 Dicyclomine 10mg Capsule PO 04/20/24 11:35 20 mg ONCE ONE Administration Famotidine 20 mg 04/20/24 08:33 04/20/24 08:52 Famotidine 20mg/2ml Vial IV 04/20/24 08:34 20 mg ONCE ONE Administration Lactated Ringer's 1,000 mls @ 999 mls/hr 04/20/24 08:33 04/20/24 08:53 Lactated Ringer's 1000 Ml Bag IV 04/20/24 09:33 999 mls/hr .Q1H1M ONE Administration Iopamidol 75 ml 04/20/24 09:55 04/20/24 09:56 Iopamidol-370 (76%);100ml Bottle IV 04/20/24 09:56 75 ml ONCE ONE Administration Ketorolac Tromethamine 15 mg 04/20/24 11:03 04/20/24 11:17 Ketorolac 30mg/Ml Vial IV 04/20/24 11:04 15 mg ONCE ONE Administration Metoclopramide HCl 5 mg 04/20/24 11:34 04/20/24 11:41 Metoclopramide Hcl 10mg/2ml Vial IVP 04/20/24 11:35 5 mg ONCE ONE Administration Ondansetron HCl 4 mg 04/20/24 08:33 04/20/24 08:52 Ondansetron 4mg/2ml Vial IV 04/20/24 08:34 4 mg ONCE ONE Administration Sodium Chloride 8 ml 04/20/24 08:33 04/20/24 08:52 Sodium Chloride 0.9% 10ml Vial IV 05/20/24 08:32 8 ml NEEDED PRN Administration dilute pepcid Sodium Chloride 10 ml 04/20/24 09:55 04/20/24 09:56 Sodium Chloride 0.9% 10ml Syr (Rad Only) IV 05/20/24 09:54 10 ml NEEDED PRN Administration Maintain IV Site ORDERS Category Date Time Status CT abdomen pelvis w con Stat Cat Scan 04/20/24 08:34 Completed Complete Blood Count Auto Diff Stat Lab 04/20/24 08:20 Completed Comprehensive Metabolic Panel Stat Lab 04/20/24 08:20 Completed HIV Combo Stat Lab 04/20/24 08:20 Completed Hepatitis C Ab Qual. W/ RFX Stat Lab 04/20/24 08:20 Completed Lipase Stat Lab 04/20/24 08:20 Completed Rapid PCR Covid and Flu A/B Stat Lab 04/20/24 08:39 Completed Serum [HCG Qualitative, Serum] Stat Lab 04/20/24 08:20 Completed UA [Urinalysis and Microscopic] Stat Lab 04/20/24 10:32 Completed Medical Decision Narrative: In summary, this patient is a 39-year-old female presenting to the Emergency Department for evaluation of lower abdominal pain, nausea, vomiting, weakness, and headache. Differential diagnoses considered include but are not limited to gastroenteritis, colitis, diverticulitis, appendicitis, cystitis, ureterolithiasis. Ruling out the most morbid conditions drove assessment. It should be noted patient's history includes hyperlipidemia and GERD which may or may not be at goal therapy. This complicates all aspects of care by increasing patient's risk for morbidity. I reviewed patient's past medical records and noted previous evaluations for abdominal pain in the past, which was 12/2022. On exam, the patient is lying in bed in no acute distress with normal vital signs on cardiac telemetry. She has some right lower quadrant tenderness noted on exam but no rebound, guarding, or rigidity. She does still have her appendix. Workup included CBC, CMP, lipase, urinalysis, test, CT abdomen and pelvis with IV contrast. She was given a bolus of IV fluids, IV Toradol, IV acetaminophen, IV Zofran, IV Pepcid. I independently interpreted CT scan prior to the radiologist read and noted no obvious appendicitis. Please see their read for final interpretation. They noted appendix was not clearly visualized but there were no secondary findings labs were obtained that demonstrated reassuring CBC with no significant leukocytosis, reassuring chemistry with only mild hypokalemia. Kidney function, liver enzymes are reassuring. Urinalysis is not concerning for infection. On reassessment, patient had improvement after administration of interventions above. She still has some abdominal cramping and nausea, so I administered IV Reglan and Bentyl with good improvement.. At this time, patient was deemed to be appropriate for discharge home, as I feel we have excluded acute life-threatening or surgical pathology as a cause of her symptoms.. She was given prescriptions for Bentyl as well as Zofran and strict return precautions. She was given instructions for close outpatient follow-up. She was discharged after all questions were answered. Critical Care Critical Care Time Critical Care Time: No
--- NOTE | 2024-04-20 08:34 | CT_ITS ---
FINAL REPORT TECHNIQUE: After the administration of intravenous contrast, axial images were obtained through the abdomen and pelvis by computed tomography. The study was performed with techniques to keep radiation dose as low as reasonably achievable, (ALARA). Individual dose reduction techniques using automated exposure control or adjustment of mA and/or kV according to the patient's size were employed. CLINICAL HISTORY: RLQ pain/TTP, N/V COMPARISON: 12/30/2022 FINDINGS: Abdomen: The lung bases are clear. The liver parenchyma is homogeneous. The gallbladder is surgically absent. The spleen, pancreas, adrenals and kidneys appear unremarkable. The aorta is normal in caliber. There is no free fluid or adenopathy. Pelvis: The appendix is not clearly seen. There are no secondary signs of appendicitis. The uterus is midline. The urinary bladder is incompletely distended. There is no free fluid or adenopathy. There is no evidence of pelvic mass or inflammatory process. IMPRESSION: No acute intra-abdominal process. Appendix not clearly visualized but no secondary signs of appendicitis. Reviewed, Interpreted and Dictated by Kalia Tristan MD Transcribed by Christina Pillai Authenticated and . [facility]
[2024-04-20] MEDS: FAMOTIDINE 20MG/2ML VIAL 20 MG IV (08:52)
[2024-04-20] MEDS: SODIUM CHLORIDE 0.9% 10ML VIAL 8 ML IV (08:52)
[2024-04-20] MEDS: ONDANSETRON 4MG/2ML VIAL 4 MG IV (08:52)
[2024-04-20] MEDS: ACETAMINOPHEN 1,000MG/100ML VIAL 1000 MG IV (08:53)
[2024-04-20] MEDS: LACTATED RINGERS 1000ML 1,000 ML 999 ML IV (08:53)
[2024-04-20 09:03] LABS: Coronavirus 19, PCR Not Detected (NotDetected); Influenza A, PCR Not Detected (NotDetected); Influenza B, PCR Not Detected (NotDetected)
[2024-04-20 09:08] LABS: Basophils % 0.4 % (0.1-2.0); Eosinophils # 0.1 K/mm3 (0.0-0.4); Eosinophils % 0.9 % (0.1-12.0); Hematocrit 41.9 % (37.0-47.0); Hemoglobin 14.2 g/dL (12.2-16.2); Lymphocytes # 1.7 K/mm3 (0.7-4.5); Lymphocytes % 22.7 % (10-50); Mean Corpuscular HGB Conc 33.9 g/dL (31.8-35.4); Mean Corpuscular Hemoglobin 27.6 pg (27.0-31.2); Mean Corpuscular Volume 81.5 fl (81-99); Mean Platelet Volume 11.4 fl (7.4-10.4); Monocytes # 0.5 K/mm3 (0.1-1.0); Monocytes % 6.9 % (1.7-9.3); Neutrophils # 5.1 K/mm3 (1.8-7.8); Neutrophils % 68.8 % (37.0-80.0); Platelet Count 306 K/mm3 (142-424); Red Blood Count 5.14 M/mm3 (4.20-5.40); Red Cell Distribution Width 12.6 % (11.5-17.5); White Blood Count 7.4 K/mm3 (4.8-10.8)
[2024-04-20 09:12] LABS: Alanine Aminotransferase 59 U/L (12-78); Albumin/Globulin Ratio 1.6 (1.1-1.8); Alkaline Phosphatase 96 U/L (38-126); Anion Gap 14.3 mEq/L (5-15); Aspartate Amino Transferase 48 U/L (14-36); Bilirubin,Total 1.3 mg/dl (0.2-1.3); Blood Urea Nitrogen 11 mg/dl (7-17); Calcium 9.7 mg/dl (8.4-10.2); Carbon Dioxide 27 mmol/L (22.0-30.0); Chloride 103 mmol/L (98-107); Creatinine Clearance Estimated 121 mL/min (50-200); Estimated Glomerular Filt Rate 79 ml/min (>60); GFR (African American) 96 ML/MIN (>60); Globulin 3.1 g/dL (1.3-3.2); Glucose 112 mg/dl (74-100); Lipase 121 U/L (23-300); Potassium 3.3 mmoL/L (3.5-5.1); Sodium 141 mmol/L (136-145); Total Protein,Serum 8.1 g/dl (6.3-8.2)
--- NOTE | 2024-04-20 09:52 | PC.NURSE ---
pt to ct scan via wheelchair
[2024-04-20] MEDS: IOPAMIDOL-370 (76%);100ML BOTTLE 75 ML IV (09:56)
[2024-04-20] MEDS: SODIUM CHLORIDE 0.9% 10ML SYR (RAD ONLY) 10 ML IV (09:56)
[2024-04-20 10:22] LABS: HCG Qualitative, Serum Negative (Negative)
--- NOTE | 2024-04-20 10:39 | PC.NURSE ---
pt was given half cup of ice chips no other needs at this time call light in reach
[2024-04-20 10:43] LABS: Microscopic, Urine URINE MICROSCOPIC (MICROSCOPIC)
[2024-04-20 10:47] LABS: Appearance,Urine CLEAR (Clear); Bilirubin,Urine Negative (Negative); Blood, Urine Negative (Negative); Color,Urine YELLOW (Yellow); Glucose,Urine (UA) Negative (Negative); Ketones,Urine 2+ (Negative); Leukocyte Esterase,Urine Negative (Negative); Nitrate,Urine Negative (Negative); Protein,Urine Negative (Negative); Urobilinogen,Urine 0.2 EU/dl (0.2)
--- NOTE | 2024-04-20 11:06 | PC.NURSE ---
1106 Pt provided crackers and ice water for PO fluid challenge
[2024-04-20 11:07] LABS: Bacteria,Urine Trace /lpf
[2024-04-20] MEDS: KETOROLAC 30MG/ML VIAL 15 MG IV (11:17)
[2024-04-20] MEDS: METOCLOPRAMIDE HCL 10MG/2ML VIAL 5 MG IVP (11:41)
[2024-04-20] MEDS: DICYCLOMINE 10MG CAPSULE 20 MG PO (11:41)
[2024-04-20 15:16] LABS: HIV Combo NEGATIVE (Negative)
[2024-04-20 15:26] LABS: Hepatitis C Ab Qual. W/ RFX NEGATIVE (Negative)
== END 2024-04-20 11:51 | disposition home or self-care (01) ==
PROVIDERS: Emergency Provider Emergency Medicine; PCP Nurse Practitioner
DX: R11.2 Nausea with vomiting, unspecified (principal); R51.9 Headache, unspecified; R10.31 Right lower quadrant pain; R53.1 Weakness; M79.10 Myalgia, unspecified site; Z20.828 Contact with and (suspected) exposure to other viral communicable diseases
CPT/HCPCS: 74177; 80053; 81001; 83690; 84703; 85025; 86803; 87389; 87636; 96361; 96374; 96375; 99285; J0131; J1885; J2405; J2765; J7120; Q9967; S0028